=== PATIENT | male | born 1950 | race Caucasian/White ===

== ENCOUNTER 2023-06-08 14:05 | Emergency (ER) | payer MEDICARE, BC ==
[~2023-06-08] VITALS: Ht 172.7 cm; Wt 87.5 kg
[2023-06-08] MEDS ORDERED: KETOROLAC TROMETHAMINE 15 MG INJ IVP ONE (14:30)
[2023-06-08] MEDS ORDERED: IV NORMAL SALINE 500 ML BAG IV ONE (14:30)
[2023-06-08] MEDS ORDERED: METOCLOPRAMIDE HCL 10 MG/2 ML VIAL IV ONE (14:30)
[2023-06-08] MEDS ORDERED: METOCLOPRAMIDE HCL 10 MG/2 ML VIAL ONE (14:50)
[2023-06-08] MEDS ORDERED: KETOROLAC TROMETHAMINE 15 MG INJ ONE (14:50)
[2023-06-08 14:58] LABS: CALCIUM 9.2 mg/dL (8.5-10.1); CREATININE 2.1 mg/dL (0.6-1.3); POTASSIUM 4.7 mmol/L (3.5-5.1)
[2023-06-08 15:03] LABS: ALBUMIN 3.9 g/dL (3.4-5.0); BILIRUBIN,TOTAL 0.6 mg/dL (0.2-1.0); TOTAL PROTEIN, SERUM 7.2 g/dL (6.4-8.2)
[2023-06-08 15:13] LABS: LACTIC ACID 2.1 mmol/L (0.4-2.0)
[2023-06-08 15:30] LABS: BASOPHILS # (AUTO) 0.1 K/UL (0.0-0.2); BASOPHILS % (AUTO) 1.1 % (0.0-2.0); DIFFERENTIAL COMMENT 0; EOSINOPHILS % (AUTO) 0.4 % (0.0-7.0); HEMATOCRIT 38.9 % (36.7-47.1); HEMOGLOBIN 13.1 g/dL (12.5-16.3); LYMPHOCYTES # (AUTO) 1.1 K/uL (0.8-4.8); LYMPHOCYTES % (AUTO) 11.8 % (20.5-51.5); MEAN CORPUSCULAR HEMOGLOBIN 34.1 uug (23.8-33.4); MEAN CORPUSCULAR HGB CONC 34 g/dL (32.5-36.3); MEAN CORPUSCULAR VOLUME 101.3 fL (73.0-96.2); MONOCYTES # (AUTO) 0.8 K/uL (0.1-1.30); MONOCYTES % (AUTO) 8.8 % (0.0-11.0); NEUTROPHILS # (AUTO) 7.4 K/uL (1.8-8.9); NEUTROPHILS % (AUTO) 77.9 % (38.5-71.5); PLATELET COUNT (AUTO) 233 K/uL (152-348); RED BLOOD CELL COUNT(AUTO) 3.85 MIL/uL (4.06-5.63); RED CELL DISTRIBUTION WIDTH 12.5 % (12.1-16.2); WHITE BLOOD COUNT (AUTO) 9.5 K/uL (3.6-10.2)
[2023-06-08 17:19] LABS: CALCIUM 8.1 mg/dL (8.5-10.1); POTASSIUM 4.8 mmol/L (3.5-5.1)
[2023-06-08 17:29] LABS: *BILIRUBIN,URIN NEGATIVE (NEGATIVE); *BLOOD, URINE 1+ (NEGATIVE); *CLARITY,URINE CLEAR (CLEAR); *COLOR,URINE YELLOW (YELLOW); *KETONES,URINE NEGATIVE (NEGATIVE); *PROTEIN,URINE 1+ (NEGATIVE); *UROBILINOGEN,URINE 0.2 E.U./dl (NORMAL); LEUKOCYTE ESTERASE ,URINE NEGATIVE (NEGATIVE); NITRITE, URINE NEGATIVE (NEGATIVE); PH,URINE 5.5 (5.0-8.0); UGLUCOSE NEGATIVE (NEGATIVE)
[2023-06-08 18:16] LABS: WBC,URINE 0-3 /HPF (0-3)
[2023-06-08 18:19] LABS: BACTERIA,URINE FEW /HPF (NONE SEEN); SQUAMOUS EPITHELIAL CELL,UR FEW /HPF (NONE SEEN)
[2023-06-08] MEDS ORDERED: CEFTRIAXONE 1 G in IV DEXTROSE 5% 50 ML IV ONE (18:45)
[2023-06-08] MEDS ORDERED: CEFTRIAXONE /D5W 50ML IVPB **ER PYXIS IV ONE (18:48)
[2023-06-08] MEDS ORDERED: TAMS-3 PO (19:41)
[2023-06-08] MEDS ORDERED: ONDA4TAB5 PO (19:48)
[2023-06-08] MEDS ORDERED: CEFP200T14 PO (19:49)
[2023-06-08 19:58] VITALS: BP 145/75; TEMP 98; O2SAT 99
== END 2023-06-08 19:57 | disposition home or self-care (01) ==
LOC: ER 14:20
DX: N13.30 Unspecified hydronephrosis (principal); R94.4 Abnormal results of kidney function studies; R07.89 Other chest pain; E11.9 Type 2 diabetes mellitus without complications; I10 Essential (primary) hypertension; Z88.5 Allergy status to narcotic agent; Z79.899 Other long term (current) drug therapy
CPT/HCPCS: 99285; 74176; 96365; 76705; 71045; 96375; 80053; 81001; 82248; 83690; 85025; 84484; 36415; 93005; 83605 ×2; 80048; J0696; J1885; J2765; J7040; A4663